=== PATIENT | male | born 1995 | race Caucasian/White ===

== ENCOUNTER 2016-08-21 13:42 | Emergency (ER) | payer BC ==
--- NOTE | 2016-08-21 14:51 | UC ---
Skin Complaint HPI - HPI Summary HPI Summary: 20 yo male presents here to get a couple of "spots" his penis checked No hx STD NO new partner no dysuria or urethral d/c lesions non tender and have been present for a week - History of Current Complaint Chief Complaint: UCGU Time Seen by Provider: 08/21/16 14:32 Stated Complaint: PERSONAL Hx Obtained From: Patient Onset/Duration: Gradual Onset, Lasting Weeks - 1 Timing: Constant Onset Severity: Mild Current Severity: Mild Pain Intensity: 0 Pain Scale Used: 0-10 Numeric Location: Other - penile shaft Character: Redness - #1, Raised - #1 Aggravating: Touch - #1 hurts if he touches it Alleviating: Nothing Associated Signs & Symptoms: Positive: Tenderness - Allergy/Home Medications Allergies/Adverse Reactions: Allergies Allergy/AdvReac Type Severity Reaction Status Date / Time No Known Allergies Allergy Verified 08/21/16 14:16 Review of Systems Constitutional: Negative Skin: Negative Eyes: Negative ENT: Negative Respiratory: Negative Cardiovascular: Negative Gastrointestinal: Negative Genitourinary: Negative Motor: Negative Neurovascular: Negative Musculoskeletal: Negative Neurological: Negative Psychological: Negative All Other Systems Reviewed And Are Negative: Yes PMH/Surg Hx/FS Hx/Imm Hx Previously Healthy: Yes - Surgical History Surgical History: None - Family History Known Family History: Positive: Hypertension - Social History Alcohol Use: ~3/daily Alcohol Amount: weekends Substance Use Type: None Smoking Status (MU): Current Some Day Smoker Type: Cigarettes Amount Used/How Often: occasional - Immunization History Most Recent Influenza Vaccination: Not the [employer] [facility] Physical Exam Triage Information Reviewed: Yes Appearance: Well-Appearing, No Pain Distress, Well-Nourished Vital Signs: Initial Vital Signs Temp 98.4 F 08/21/16 14:18 Pulse 70 08/21/16 14:18 Resp 16 08/21/16 14:18 BP 135/73 08/21/16 14:18 Pulse Ox 100 08/21/16 14:18 Vital Signs Reviewed: Yes Eyes: Positive: Conjunctiva Clear ENT: Positive: Hearing grossly normal. Negative: Nasal congestion, Nasal drainage, Trismus, Muffled/hoarse voice Dental Exam: Normal Neck exam: Normal Neck: Positive: Supple, Nontender Respiratory: Positive: Lungs clear, Normal breath sounds, No respiratory distress Abdomen Description: Negative: CVA Tenderness (R), CVA Tenderness (L) Neurological: Positive: Alert Psychological Exam: Normal Skin Exam: Other - see image Course/Dx - Diagnoses Provider Diagnoses: papule/early pustule. ? veneral wart Discharge - Discharge Plan Condition: Stable Disposition: HOME Prescriptions: DOXYcycline CAP(*) [DOXYcycline 100MG CAP(*)] 100 mg PO BID #20 cap Referrals: Perry Kinney DO [Primary Care Provider] - Additional Instructions: The first lesion looks like it it due to skin infection (non STD) Recheck if it does not disappear with the doxy The second lesion looks like a wart and I suggest you see your trauma surgeon Images Perineum Male: 1 - papule 2 - verrucus lesion
[2016-08-21 15:21] VITALS: BP 135/73
== END 2016-08-21 14:45 | disposition home or self-care (01) ==
LOC: UCCORT 13:42
DX: N48.9 Disorder of penis, unspecified (principal); F17.210 Nicotine dependence, cigarettes, uncomplicated
CPT/HCPCS: 99212; G0463

== ENCOUNTER 2018-01-07 13:59 | Emergency (ER) | payer BC ==
[2018-01-07 14:42] VITALS: BP 129/54
[2018-01-07] MEDS ORDERED: DOXYcycline CAP(*) 100 MG PO ONE (15:16)
--- NOTE | 2018-01-07 15:17 | ED ---
Skin Complaint - HPI Summary HPI Summary: 22 yr old male with the complaint of right bite to the lateral right inguinal area. He was hiking yesterday, and he picked up a tick. He noticed it today, it was not engorged, he pulled it out, but broke off part of it. he wants rest removed. No other complaints. - History of Current Complaint Chief Complaint: UCSkin Time Seen by Provider: 01/07/18 15:03 Stated Complaint: TICK BITE Pain Intensity: 0 - Allergy/Home Medications Allergies/Adverse Reactions: Allergies Allergy/AdvReac Type Severity Reaction Status Date / Time No Known Allergies Allergy Verified 01/07/18 14:35 Home Medications: Home Medications NK [No Home Medications Reported] 01/07/18 [History Confirmed 01/07/18] PMH/Surg Hx/FS Hx/Imm Hx - Surgical History Surgery Procedure, Year, and Place: WISDOM TEETH EXTRACTIONS Infectious Disease History: No Infectious Disease History: Denies: Traveled Outside the [place] in Last 30 Days - Family History Known Family History: Positive: Hypertension - Social History Alcohol Use: Occasionally Alcohol Amount: weekends Substance Use Type: Reports: None Smoking Status (MU): Current Some Day Smoker Type: Cigarettes Amount Used/How Often: occasional Review of Systems Constitutional: Negative Positive: Other - tick bite All Other Systems Reviewed And Are Negative: Yes Physical Exam Triage Information Reviewed: Yes Vital Signs On Initial Exam: Initial Vitals Temp Pulse Resp BP Pulse Ox 98.1 F 72 17 129/54 0 01/07/18 14:36 01/07/18 14:36 01/07/18 14:36 01/07/18 14:36 01/07/18 14:36 Vital Signs Reviewed: Yes Appearance: Positive: Well-Appearing, No Pain Distress Skin: Positive: Other - tick bite right lateral inguinal area, and a very small part, FB retained. One CM of redness of localized reaction. No erythema migrans. Head/Face: Positive: Normal Head/Face Inspection Eyes: Positive: EOMI ENT: Positive: Normal ENT inspection Neck: Positive: Nontender Respiratory/Lung Sounds: Positive: Clear to Auscultation, Breath Sounds Present Cardiovascular: Positive: RRR. Negative: Murmur Abdomen Description: Positive: Nontender Musculoskeletal: Positive: Strength/ROM Intact Neurological: Positive: Sensory/Motor Intact, Alert, Oriented to Person Place, Time, CN Intact II-III - [place] Coma Scale Best Eye Response: 4 - Spontaneous Best Motor Response: 6 - Obeys Commands Best Verbal Response: 5 - Oriented Coma Scale Total: 15 Procedures - Procedure Summary Procedure Summary: the tick head removed succesfully with splinter forceps under aseptic technique. Prep with hibiclens, and removed with the forceps. Tolerated well. No blood loss. Diagnostics - Vital Signs Vital Signs Temp Pulse Resp BP Pulse Ox 01/07/18 14:36 98.1 F 72 17 129/54 0 - Laboratory Lab Statement: Any lab studies that have been ordered have been reviewed, and results considered in the medical decision making process. Course/Dx - Course Course Of Treatment: 22 yr old male with tick head removed. DC home in good condition. Doxy 200 given. - Diagnoses Provider Diagnoses: Tick bite Discharge - Sign-Out/Discharge Documenting (check all that apply): Discharge/Admit/Transfer - Discharge Plan Condition: Good Disposition: HOME Patient Education Materials: Lyme Disease (ED), Tick Bite (ED) Referrals: No Primary Care Phys,NOPCP [Primary Care Provider] - Additional Instructions: You have received lyme instructions for information purpose only. You have not been diagnosed with lyme disease. - Billing Disposition and Condition Condition: GOOD Disposition: Home
== END 2018-01-07 15:22 | disposition home or self-care (01) ==
LOC: UCCORT 13:59
DX: S30.861A Insect bite (nonvenomous) of abdominal wall, initial encounter (principal); W57.XXXA Bitten or stung by nonvenomous insect and other nonvenomous arthropods, initial encounter; Y93.9 Activity, unspecified; Y99.9 Unspecified external cause status; F17.210 Nicotine dependence, cigarettes, uncomplicated
CPT/HCPCS: 99212; A9270-GY; G0463

== ENCOUNTER 2019-01-15 14:53 | Emergency (ER) | payer BC ==
--- NOTE | 2019-01-15 15:05 | UC ---
Bite Injury/Animal HPI - HPI Summary HPI Summary: Unengorged Tick noted behind L knee. He removed. He is unsure if it was a dog or deer tick. denies fever, joint pain, rash. - History of Current Complaint Stated Complaint: TICK BITE Time Seen by Provider: 01/15/19 15:01 Hx Obtained From: Patient Onset/Duration: Sudden Onset Type of Bite: Wild Animal - INSECT TICK Character: Puncture - Allergies/Home Medications Allergies/Adverse Reactions: Allergies Allergy/AdvReac Type Severity Reaction Status Date / Time No Known Allergies Allergy Verified 01/15/19 15:06 PMH/Surg Hx/FS Hx/Imm Hx - Additional Past Medical History Additional PMH: no chronic conditions Previously Healthy: Yes - Surgical History Surgical History: Yes Surgery Procedure, Year, and Place: WISDOM TEETH EXTRACTIONS - Family History Known Family History: Positive: Hypertension - Social History Alcohol Use: Occasionally Alcohol Amount: weekends Substance Use Type: None Smoking Status (MU): Current Some Day Smoker Type: Cigarettes Amount Used/How Often: occasional - Immunization History Most Recent Influenza Vaccination: Not the 2015/2016 [facility] Review of Systems All Other Systems Reviewed And Are Negative: Yes Constitutional: Negative: Fever Skin: Negative: Rash Respiratory: Negative: Cough Musculoskeletal: Negative: Arthralgia Physical Exam Triage Information Reviewed: Yes Appearance: Well-Appearing Vital Signs Reviewed: Yes Musculoskeletal: Positive: No Edema - of knee pain bilat, Other: - denies joint pain w/ movement of L knee Neurological: Positive: Alert Skin: Positive: Other - small healing puncture wound behind knee from insect.. Negative: Rashes Bite Injury Course/Dx - Course Course Of Treatment: Unengorged tick behind L knee, removed by patient. No other complications or symptoms. Unclear if it was dog or deer tick but since in endemic area, attached for 36hrs or less he has decided to get prophylaxis antibx. vitals good. - Differential Dx/Diagnosis Differential Diagnosis/HQI/PQRI: Cellulitis, Superficial Infection, Other Provider Diagnosis: Tick bite Discharge - Sign-Out/Discharge Documenting (check all that apply): Patient Departure All imaging exams completed and their final reports reviewed: No Studies - Discharge Plan Condition: Good Disposition: HOME Prescriptions: DOXYcycline CAP(*) [DOXYcycline 100MG CAP(*)] 100 mg PO BID 1 Days #2 cap Patient Education Materials: Tick Bite (ED) Referrals: No Primary Care Phys,NOPCP [Primary Care Provider] - Additional Instructions: If you have any questions please call us back - Billing Disposition and Condition Condition: GOOD Disposition: Home
[2019-01-15 15:10] VITALS: BP 131/62
== END 2019-01-15 15:26 | disposition home or self-care (01) ==
LOC: UCCORT 14:53
DX: S80.262A Insect bite (nonvenomous), left knee, initial encounter (principal); W57.XXXA Bitten or stung by nonvenomous insect and other nonvenomous arthropods, initial encounter
CPT/HCPCS: 99212; G0463